=== PATIENT | female | born 1965 | race American Indian/Alaskan Native ===

== ENCOUNTER 2017-06-03 10:06 | Emergency (ER) | payer OTHER ==
[2017-06-03 10:43] VITALS: BP 157/93
--- NOTE | 2017-06-03 13:08 | Emergency Department Report ---
Blank Doc - Documentation Documentation: 51-year-old female with a history of hypertension and diabetes complains of bilateral flank pain 1 week. Feels like a "cramp". Worse with movement and in the morning. Pain radiates to the left upper quadrant at times. Denies associated symptoms include nausea, vomiting, melena, hematochezia, hematuria, or dysuria. That Motrin last night with improvement in pain Orders: UA Please note patient is currently on her menstrual cycle (instructed to wipe prior to providing a sample).
[2017-06-03 14:50] LABS: Bacteria,Urine 1+ /HPF (Negative); Bilirubin,Urine NEG (Negative); Blood,Urine LG (Negative); Color,Urine Yellow (Yellow); Mucus,Urine FEW /HPF; Protein,Urine <15 mg/dL mg/dL (Negative); Urobilinogen,Urine < 2.0 mg/dL (<2.0)
[2017-06-03 15:06] LABS: RBC,Urine > 182.0 /HPF (0.0-6.0)
--- NOTE | 2017-06-03 15:22 | Emergency Department Report ---
ED Back Pain/Injury HPI - General Chief Complaint: Back Pain/Injury Stated Complaint: LOW BACK PAIN Time Seen by Provider: 06/03/17 13:00 Source: patient Limitations: No Limitations - History of Present Illness Initial Comments: This is a 51-year-old female nontoxic, well nourished in appearance, no acute signs of distress presents to the ED with c/o of bilateral lower/flank pain intermittent x1 week. Patient describes pain as cramping. Patient denies any radiation of patient. Patient denies any urinary symptoms.Patient denies any trauma. Patient stated that movement makes the pain worse and laying flat upsides the pain. Patient denies any nausea, vomiting, chest pain, abdominal pain, shortness of breathe, fever, chills, headache, or neck pain. Patient denies any allergies. PMH includes HTN or DM. MD Complaint: back pain -: week(s) (1) Similar Symptoms Previously: Yes Radiation: none Severity: mild Severity scale (0 -10): 8 Quality: other (cramping) Consistency: intermittent Improves With: immobilization, supine Worsens With: movement, walking Associated Symptoms: denies other symptoms. denies: confusion, weakness, chest pain, numbness, difficulty walking, cough, difficulty urinating, diaphoresis, incontinence, fever/chills, constipation, headaches, abdominal pain, loss of appetite, malaise, nausea/vomiting, rash, seizure, shortness of breath, syncope - Related Data Previous Rx's Medication Instructions Recorded Last Taken Type Cyclobenzaprine [Flexeril] 10 mg PO QHS PRN #7 tablet 06/03/17 Unknown Rx Ibuprofen [Motrin] 600 mg PO Q8H PRN #30 tablet 06/03/17 Unknown Rx Sulfamethoxazole/Trimethoprim 1 each PO BID #14 tablet 06/03/17 Unknown Rx [Bactrim DS TAB] Allergies Allergy/AdvReac Type Severity Reaction Status Date / Time No Known Allergies Allergy Unverified 06/03/17 10:38 ED Review of Systems ROS: Stated complaint: LOW BACK PAIN Other details as noted in HPI Constitutional: denies: chills, fever Eyes: denies: eye pain, eye discharge, vision change ENT: denies: ear pain, throat pain Respiratory: denies: cough, shortness of breath, wheezing Cardiovascular: denies: chest pain, palpitations Endocrine: no symptoms reported Gastrointestinal: denies: abdominal pain, nausea, diarrhea Genitourinary: denies: urgency, dysuria, discharge Musculoskeletal: back pain. denies: joint swelling, arthralgia Skin: denies: rash, lesions Neurological: denies: headache, weakness, paresthesias Psychiatric: denies: anxiety, depression Hematological/Lymphatic: denies: easy bleeding, easy bruising ED Past Medical Hx - Past Medical History Hx Hypertension: Yes Hx Diabetes: Yes - Surgical History Past Surgical History?: Yes Hx Cholecystectomy: Yes Additional Surgical History: TUBAL LIGATION - Social History Smoking Status: Never Smoker Substance Use Type: None - Medications Home Medications: Home Medications Medication Instructions Recorded Confirmed Last Taken Type Cyclobenzaprine [Flexeril] 10 mg PO QHS PRN #7 tablet 06/03/17 Unknown Rx Ibuprofen [Motrin] 600 mg PO Q8H PRN #30 tablet 06/03/17 Unknown Rx Sulfamethoxazole/Trimethoprim 1 each PO BID #14 tablet 06/03/17 Unknown Rx [Bactrim DS TAB] ED Physical Exam - General Limitations: No Limitations General appearance: alert, in no apparent distress - Head Head exam: Present: atraumatic, normocephalic - Eye Eye exam: Present: normal appearance Pupils: Present: normal accommodation - ENT ENT exam: Present: normal exam, mucous membranes moist - Neck Neck exam: Present: normal inspection, full ROM. Absent: tenderness, meningismus, lymphadenopathy - Respiratory Respiratory exam: Present: normal lung sounds bilaterally. Absent: respiratory distress, wheezes, rales, rhonchi, stridor, chest wall tenderness, accessory muscle use, decreased breath sounds, prolonged expiratory - Cardiovascular Cardiovascular Exam: Present: regular rate, normal rhythm, normal heart sounds. Absent: bradycardia, tachycardia, irregular rhythm, systolic murmur, diastolic murmur, rubs, gallop - GI/Abdominal GI/Abdominal exam: Present: soft, normal bowel sounds. Absent: distended, tenderness, guarding, rebound, rigid, diminished bowel sounds - Rectal Rectal exam: Present: deferred - Extremities Exam Extremities exam: Present: normal inspection, full ROM, normal capillary refill. Absent: tenderness - Back Exam Back exam: Present: normal inspection, full ROM, paraspinal tenderness (lumbar region). Absent: tenderness, CVA tenderness (R), CVA tenderness (L), muscle spasm, vertebral tenderness, rash noted - Neurological Exam Neurological exam: Present: alert, oriented X3, normal gait - Psychiatric Psychiatric exam: Present: normal affect, normal mood - Skin Skin exam: Present: warm, dry, intact, normal color. Absent: rash ED Course Vital Signs 06/03/17 10:39 Temperature 97.4 F L Pulse Rate 71 Respiratory 17 Rate Blood Pressure 157/93 O2 Sat by Pulse 98 Oximetry - Reevaluation(s) Reevaluation #1: 06/03/17 15:22 Patient is speaking in full sentences with no signs of distress noted. - Consultations Consultation #1: 06/03/17 15:22 Patient has been consulted with Dr. Roblero about patient history, physical exam, and labs and examined and screened patient and agrees to ED plan of care and discharge plan of care. ED Medical Decision Making - Medical Decision Making This is a 51-year-old female that presents with muscleskeltal pain. Patient is stable and was examined by me and Dr. Roblero. Patient stated she is on her menstrual cycle currently. UA obtained with slight UTI. No CVA tenderness. Patient is discharged with Flexeril and Bactrim. Patient was instructed to Follow-up with a primary care doctor in 3-5 days or if symptoms worsen and continue return to emergency room as soon as possible. At time of discharge, the patient does not seem toxic or ill in appearance. No acute signs of distress noted. Patient agrees to discharge treatment plan of care. No further questions noted by the patient. Critical care attestation.: If time is entered above; I have spent that time in minutes in the direct care of this critically ill patient, excluding procedure time. ED Disposition Clinical Impression: Low back strain Qualifiers: Encounter type: initial encounter Qualified Code(s): S39.012A - Strain of muscle, fascia and tendon of lower back, initial encounter UTI (urinary tract infection) Qualifiers: Urinary tract infection type: site unspecified Hematuria presence: without hematuria Qualified Code(s): N39.0 - Urinary tract infection, site not specified Disposition: TO HOME OR SELFCARE Is pt being admited?: No Does the pt Need Aspirin: No Condition: Stable Instructions: Low Back Strain (ED), Urinary Tract Infection in Women (ED), Sulfamethoxazole/Trimethoprim (By mouth), Cyclobenzaprine (By mouth) Additional Instructions: Follow-up with your primary care doctor in 3-5 days or if symptoms worsen such as bladder or bowel stability, chest pain, short of breath, numbness or tingling sensation in extremities, headache, dizziness, visual changes, nausea vomiting, or abdominal pain, return back to emergency room as was possible. Take ibuprofen and Flexeril as prescribed. Do not operate heavy machinery while taking Flexeril due to sedation Prescriptions: Cyclobenzaprine [Flexeril] 10 mg PO QHS PRN #7 tablet PRN Reason: Muscle Spasm Ibuprofen [Motrin] 600 mg PO Q8H PRN #30 tablet PRN Reason: Pain Sulfamethoxazole/Trimethoprim [Bactrim DS TAB] 1 each PO BID #14 tablet Referrals: PRIMARY CAREMD [Primary Care Provider] - 3-5 Days ZANDRA ROMERO MD [Staff Physician] - 3-5 Days [facility] [Outside] - 3-5 Days [facility] [Outside] - 3-5 Days Forms: Work/School Release Form(ED)
== END 2017-06-03 16:10 | disposition home or self-care (01) ==
LOC: ED 10:06
DX: S39.012A Strain of muscle, fascia and tendon of lower back, initial encounter (principal); N39.0 Urinary tract infection, site not specified; I10 Essential (primary) hypertension; E11.9 Type 2 diabetes mellitus without complications; X58.XXXA Exposure to other specified factors, initial encounter; Y93.89 Activity, other specified; Y92.89 Other specified places as the place of occurrence of the external cause; Y99.8 Other external cause status
CPT/HCPCS: 81001

== ENCOUNTER 2017-09-10 22:30 | Emergency (ER) | payer OTHER ==
[2017-09-10] MEDS ORDERED: ASPIRIN PO ONE (23:09)
[2017-09-10 23:37] LABS: Basophils # (Auto) 0.1 K/mm3 (0.0-0.1); Basophils % (Auto) 0.8 % (0.0-1.8); Eosinophils # (Auto) 0.4 K/mm3 (0.0-0.4); Eosinophils % (Auto) 4.5 % (0.0-4.3); Hematocrit 33.8 % (30.3-42.9); Hemoglobin 11.6 gm/dl (10.1-14.3); Lymphocytes # (Auto) 2.3 K/mm3 (1.2-5.4); Lymphocytes % (Auto) 28.2 % (13.4-35.0); Mean Corpuscular HGB Conc 34 % (30-34); Mean Corpuscular Volume 71 fl (79-97); Monocytes # (Auto) 0.7 K/mm3 (0.0-0.8); Monocytes % (Auto) 8.9 % (0.0-7.3); Platelet Count 438 K/mm3 (140-440); Red Blood Count 4.75 M/mm3 (3.65-5.03); Red Cell Distribution Width 18.3 % (13.2-15.2)
[2017-09-10 23:55] LABS: BUN/Creatinine Ratio 16; Blood Urea Nitrogen 11 mg/dL (7-17); Calcium 9.7 mg/dL (8.4-10.2); Hemolysis Index 1
[2017-09-11 00:01] LABS: Mean Corpuscular Hemoglobin 24 pg (28-32)
[2017-09-11 01:52] LABS: Bilirubin,Urine NEG (Negative); Blood,Urine LG (Negative); Color,Urine Yellow (Yellow); Mucus,Urine FEW /HPF; Protein,Urine <15 mg/dL mg/dL (Negative); Urobilinogen,Urine < 2.0 mg/dL (<2.0)
--- NOTE | 2017-09-11 02:21 | XRay Report ---
FINAL REPORT EXAM: XR CHEST ROUTINE 2V HISTORY: cough, cp COMPARISON: None available. FINDINGS:: Frontal and lateral views of the chest obtained. Heart normal in size. Linear atelectasis or scarring at the right lung base. Lungs otherwise clear. No large airspace consolidation or pleural effusion. No pneumothorax. IMPRESSION:: Small focus of linear scarring or atelectasis at the right lung base. Lungs are otherwise clear.
--- NOTE | 2017-09-11 02:30 | Emergency Department Report ---
ED Chest Pain HPI - General Chief Complaint: Chest Pain Stated Complaint: CHEST PAIN Time Seen by Provider: 09/11/17 01:55 Source: patient Mode of arrival: Ambulatory Limitations: No Limitations - History of Present Illness Initial Comments: 52-year-old female the past medical history diabetes, hypertension, cholecystectomy and tubal ligation presents to the hospital with complaints of sternal chest pain and GERD symptoms. Midsternal chest pain is moderate, sharp , intermittent, worse with palpation and movement in certain directions. She thinks that she slept in a awkward position. She denies shortness of breath, nausea, vomiting, diaphoresis, calf tenderness, leg edema, or history of PE/ DVT. Nonproductive cough reported to allergies. Patient did recently return from a trip to [place] where her primary care doctor is located. She does not have a local primary care doctor despite living here 5 years. She also had history of chronic GERD and has been noncompliant with her omeprazole. Today she had epigastric discomfort that then spread to her chest and described as a burning sensation. Similar symptoms in the past due to reflux. The patient recently sprained a muscle and has been taken ibuprofen and was also recently prescribed Naprosyn. Pain improved after omeprazole and Mylanta. Patient last stress test was several years ago the patient cannot recall the year. She denies smoking history or family history of CAD. Since waiting in the ED her pain has improved Severity scale (0 -10): 3 - Related Data Previous Rx's Medication Instructions Recorded Last Taken Type Cyclobenzaprine [Flexeril] 10 mg PO QHS PRN #7 tablet 06/03/17 Unknown Rx Ibuprofen [Motrin] 600 mg PO Q8H PRN #30 tablet 06/03/17 Unknown Rx Sulfamethoxazole/Trimethoprim 1 each PO BID #14 tablet 06/03/17 Unknown Rx [Bactrim DS TAB] Allergies Allergy/AdvReac Type Severity Reaction Status Date / Time No Known Allergies Allergy Verified 09/10/17 23:08 Heart Score - HEART Score History: Slightly suspicious EKG: Normal Age: 45-65 Risk factors: 1-2 risk factors Troponin: < normal limit HEART Score: 2 ED Review of Systems ROS: Stated complaint: CHEST PAIN Other details as noted in HPI Comment: All other systems reviewed and negative ED Past Medical Hx - Past Medical History Previous Medical History?: Yes Hx Hypertension: Yes Hx Diabetes: Yes - Surgical History Past Surgical History?: Yes Hx Cholecystectomy: Yes Additional Surgical History: TUBAL LIGATION - Social History Smoking Status: Never Smoker Substance Use Type: None - Medications Home Medications: Home Medications Medication Instructions Recorded Confirmed Last Taken Type Cyclobenzaprine [Flexeril] 10 mg PO QHS PRN #7 tablet 06/03/17 Unknown Rx Ibuprofen [Motrin] 600 mg PO Q8H PRN #30 tablet 06/03/17 Unknown Rx Sulfamethoxazole/Trimethoprim 1 each PO BID #14 tablet 06/03/17 Unknown Rx [Bactrim DS TAB] ED Physical Exam - General Limitations: No Limitations - Other Other exam information: General: No limitations, patient is alert in no acute distress Head exam: Atraumatic, normocephalic Eyes exam: Normal appearance, pupils equal reactive to light, extraocular movements intact ENT: Moist mucous membrane, normal oropharynx Neck exam: Normal inspection, full range of motion, no meningismus nontender Respiratory exam: Clear to auscultation bilateral, no wheezes, rales, crackles Cardiovascular: Normal rate and rhythm, normal heart sounds, reproducible midsternal chest wall tenderness Abdomen: Soft, nondistended, and nontender, with normal bowel sounds, no rebound, or guarding Extremity: Full range of motion normal inspection no deformity, no calf tenderness or edema Back: Normal Inspection, full range of motion, no tenderness Neurologic: Alert, oriented x3, cranial nerves intact, no motor or sensory deficit Psychiatric: normal affect, normal mood Skin: Warm, dry, intact ED Course Vital Signs 09/10/17 09/11/17 09/11/17 23:05 01:34 01:35 Temperature 97.9 F 97.2 F L Pulse Rate 74 Respiratory 18 18 Rate Blood Pressure 159/82 O2 Sat by Pulse 96 98 Oximetry SKYE score - Skye Score Age > 65: (0) No Aspirin use within the Past 7 Days: (0) No 3 or more CAD Risk Factors: (0) No 2 or more Angina events in past 24 hrs: (0) No Known CAD with more than 50% Stenosis: (0) No Elevated Cardiac Markers: (0) No ST Deviation Greater than 0.5mm: (0) No SKYE Score: 0 ED Medical Decision Making - Lab Data Result diagrams: 09/10/17 23:14 09/10/17 23:14 Lab Results 09/10/17 09/10/17 09/11/17 Range/Units 23:14 23:14 01:34 WBC 8.3 (4.5-11.0) K/mm3 RBC 4.75 (3.65-5.03) M/mm3 Hgb 11.6 (10.1-14.3) gm/dl Hct 33.8 (30.3-42.9) % MCV 71 L (79-97) fl MCH 24 L (28-32) pg MCHC 34 (30-34) % RDW 18.3 H (13.2-15.2) % Plt Count 438 (140-440) K/mm3 Lymph % (Auto) 28.2 (13.4-35.0) % [place] % (Auto) 8.9 H (0.0-7.3) % Eos % (Auto) 4.5 H (0.0-4.3) % Baso % (Auto) 0.8 (0.0-1.8) % Lymph # 2.3 (1.2-5.4) K/mm3 [place] # 0.7 (0.0-0.8) K/mm3 Eos # 0.4 (0.0-0.4) K/mm3 Baso # 0.1 (0.0-0.1) K/mm3 Seg Neutrophils % 57.6 (40.0-70.0) % Seg Neutrophils # 4.8 (1.8-7.7) K/mm3 Sodium 140 (137-145) mmol/L Potassium 3.5 L (3.6-5.0) mmol/L Chloride 98.1 (98-107) mmol/L Carbon Dioxide 26 (22-30) mmol/L Anion Gap 19 mmol/L BUN 11 (7-17) mg/dL Creatinine 0.7 (0.7-1.2) mg/dL Estimated GFR > 60 ml/min BUN/Creatinine Ratio 16 % Glucose 111 H (65-100) mg/dL Calcium 9.7 (8.4-10.2) mg/dL Troponin T < 0.010 (0.00-0.029) ng/mL Urine Color Yellow (Yellow) Urine Turbidity Clear (Clear) Urine pH 5.0 (5.0-7.0) Ur Specific [place] 1.018 (1.003-1.030) Urine Protein <15 mg/dl (Negative) mg/dL Urine Glucose (UA) Neg (Negative) mg/dL Urine Ketones Neg (Negative) mg/dL Urine Blood Lg (Negative) Urine Nitrite Neg (Negative) Urine Bilirubin Neg (Negative) Urine Urobilinogen < 2.0 (<2.0) mg/dL Ur Leukocyte Esterase Neg (Negative) Urine WBC (Auto) 1.0 (0.0-6.0) /HPF Urine RBC (Auto) 35.0 (0.0-6.0) /HPF U Epithel Cells (Auto) < 1.0 (0-13.0) /HPF Urine Mucus Few /HPF - EKG Data -: EKG Interpreted by Nh EKG shows normal: sinus rhythm, axis (qrs 14), QRS complexes (qrsd 98), ST-T waves (flat lat t waves) Rate: normal (68) - Radiology Data Radiology results: report reviewed Read by radiology Chest x-ray: Small focus of linear scarring or atelectasis of the right lung base. Lungs otherwise clear - Medical Decision Making Reproducible sternal chest pain. Suspect costochondritis. No signs of ST elevation [place]. Troponin negative 1. Patient declined a repeat troponin and d-dimer. Patient does not have signs and symptoms of PE or DVT but does have the recent travel history there d-dimer was ordered initially. Patient informed to return if she develops pleuritic chest pain (other than the sternum) and shortness of breath. Chest x-ray without acute findings GERD Exacerbated by NSAID use and omeprazole noncompliant Counselor regarding discontinuing NSAIDs and patient wants to take Tylenol for pain. Declined tramadol, Percocet, and [place] Patient travels back and forth to see her primary care doctor in [place] although she has been living in [place] 5 years. She was given local outpatient follow-up - Differential Diagnosis [place], unstable in his neck, PE, costochondritis, GERD Critical Care Time: No Critical care attestation.: If time is entered above; I have spent that time in minutes in the direct care of this critically ill patient, excluding procedure time. ED Disposition Clinical Impression: Costochondritis, acute, GERD (gastroesophageal reflux disease) Disposition: TO HOME OR SELFCARE Is pt being admited?: No Does the pt Need Aspirin: No Condition: Stable Instructions: Costochondritis (ED), Gastroesophageal Reflux Disease (ED) Additional Instructions: Continue omeprazole and Mylanta. Avoid use of ibuprofen, Naprosyn, and Aleve. Take Tylenol as needed for pain. Return if symptoms worsen as indicated by your discharge instructions. Follow-up with the primary care doctor provided or with the doctor of your choice. Referrals: PRIMARY CAREMD [Primary Care Provider] - 3-5 Days ZANDRA HONG MD [Staff Physician] - 3-5 Days Time of Disposition: 03:04
[2017-09-11 03:16] VITALS: BP 153/84
== END 2017-09-11 03:17 | disposition home or self-care (01) ==
LOC: ED 22:30
DX: M94.0 Chondrocostal junction syndrome [Tietze] (principal); K21.9 Gastro-esophageal reflux disease without esophagitis; I10 Essential (primary) hypertension; E11.9 Type 2 diabetes mellitus without complications; Z90.49 Acquired absence of other specified parts of digestive tract; Z98.51 Tubal ligation status
CPT/HCPCS: 36415; 71046; 80048; 81001; 83735; 84484; 85025; 93005; 93010

== ENCOUNTER 2019-03-17 17:05 | Emergency (ER) | payer OTHER ==
--- NOTE | 2019-03-17 19:44 | Event Note ---
ED Screening Note Date of service: 03/17/19 Time: 19:43 ED Screening Note: 53 y o f presents with cc of pressure type pain behind right eye x 2 day PMH: This initial assessment/diagnostic orders/clinical plan/treatment(s) is/are subject to change based on patients health status, clinical progression and re- assessment by fellow clinical providers in the ED. Further treatment and workup at subsequent clinical providers discretion. Patient/guardian urged not to elope from the ED as their condition may be serious if not clinically assessed and managed. Initial orders include:
--- NOTE | 2019-03-17 22:07 | Emergency Department Report ---
Chief Complaint: Headache Stated Complaint: DIZZY/EYES BOTHING HER Time Seen by Provider: 03/17/19 22:01 - HPI History of Present Illness: 53 y o f presents with cc of pressure type pain behind right eye x 2 days. Patient states that she has clear fluid returning from her nose. She tries to Hack it out. She is pressure behind her eyes. Reports of some mild dizziness. Patient reports she's been taking Benadryl and Flonase. Denies any weakness or change of vision or nausea no vomiting no chest pain or shortness of breathing. States she was able to drive here. Patient reports that she would've gone to her primary care doctor but the office is closed. - Exam Vital Signs: Vital Signs 03/17/19 18:05 Temperature 98.6 F Pulse Rate 70 Respiratory 18 Rate Blood Pressure 149/87 O2 Sat by Pulse 98 Oximetry MSE screening note: Focused history and physical exam performed. Due to findings the following was ordered: 53 y o f presents with cc of pressure type pain behind right eye x 2 days. Patient states that she has clear fluid returning from her nose. She tries to Hack it out. She is pressure behind her eyes. Reports of some mild dizziness. Patient reports she's been taking Benadryl and Flonase. Denies any weakness or change of vision or nausea no vomiting no chest pain or shortness of breathing. States she was able to drive here. Patient reports that she would've gone to her primary care doctor but the office is closed. Recommend changes for Flonase to Nasacort, recommend Claritin-D. Discussed with patient if her blood pressure starts to elevate with taken the Claritin-D to increase her losartan from 50 mg to 100 mg. Also discussed the patient and I will refer her to a new primary care provider since her primary care provider with motor in January. ED Disposition for [facility] Is pt being admited?: No Does the pt Need Aspirin: No Condition: Stable Additional Instructions: Recommend changed from Flonase to Nasacort. Recommend Claritin-D twice a day for at least 1 week. Monitor her blood pressure for elevation. If it becomes too high to increase her losartan 50 mg to 100 mg. Recommend you to follow up with a primary care provider I will list one below for your convenience. Ask for Mrs. Laxmi Arevalo NP. Referrals: PRIMARY CARE, [Primary Care Provider] - 3-5 Days FREDO MERCHANT JR, MD [Staff Physician] - 3-5 Days
[2019-03-17 22:24] VITALS: BP 122/86
== END 2019-03-17 22:20 | disposition home or self-care (01) ==
LOC: ED 17:05
DX: H57.11 Ocular pain, right eye (principal); R42 Dizziness and giddiness
CPT/HCPCS: 99282

== ENCOUNTER 2020-05-28 06:30 | Emergency (ER) | payer OTHER ==
[2020-05-28 08:02] VITALS: BP 182/90
--- NOTE | 2020-05-28 08:12 | Emergency Department Report ---
Chief Complaint: Pain General Stated Complaint: BODY ACHES;EYE ITCHING Time Seen by Provider: 05/28/20 08:05 - HPI History of Present Illness: Is a very pleasant 54-year-old female who presents to the emergency department chief complaint of generalized pruritus, generalized body aches, nasal congestion, itchy eyes and watery eyes as well as itchy ears over the past 2 to 3 days. She states I think it is the pollen is causing the problem. She reports she has been sitting outside for extended period of time over the last few days and this is consistent with her seasonal allergies that she has had previously. She denies any associated fever, chills, night sweats, headache, dizziness, blurry vision, nausea,, diarrhea, chest pain, shortness of breath or any other associated symptoms. - ROS Review of Systems: See HPI - Exam Vital Signs: Vital Signs 05/28/20 07:59 Temperature 97.9 F Pulse Rate 68 Respiratory 20 Rate Blood Pressure 182/90 O2 Sat by Pulse 97 Oximetry Physical Exam: GENERAL APPEARANCE: Well-developed, well-nourished, no acute distress HEENT: Normocephalic and atraumatic. No scleral icterus. Pupils are equal, ro und, and reactive to light and accommodation. No conjunctival injection is noted. Oropharynx is clear. Mouth revealed good dentition, no lesions. Tympanic membranes are clear. NECK: Supple. Trachea is midline. No evidence of thyroid enlargement. No lymphadenopathy or tenderness. CHEST: Symmetric. Nontender to palpation. LUNGS: Breath sounds are equal and clear bilaterally. No wheezes, rhonchi, or rales. HEART: Regular rate and rhythm with normal S1 and S2. No murmurs, gallops, or rubs. BREASTS: Symmetrical. No skin or nipple retractions. No nipple discharges or masses. ABDOMEN: Soft, flat, and benign. No mass, tenderness, guarding, or rebound. No organomegaly or hernia. Bowel sounds are present. No CVA tenderness or flank mass. GENITOURINARY: Deferred RECTAL: Deferred EXTREMITIES: No cyanosis, clubbing, or edema. No lower extreme edema, negative Homans sign bilaterally NEUROLOGIC: No focal sensory or motor deficits are noted. Gait is normal. Cranial nerves II through XII are intact. Deep tendon reflexes are intact. PSYCHIATRIC: The patient is awake, alert, and oriented x3. Recent and remote memory is intact. Appropriate mood and affect. SKIN: Warm, dry, and well perfused. Good turgor. No lesions, nodules or rashes are noted. No onychomycosis. LYMPHATICS: No cervical, axillary, or groin adenopathy is noted. MSE screening note: Focused history and physical exam performed. Due to findings the following was ordered: ED Disposition for MSE Clinical Impression: Allergic rhinitis Qualifiers: Allergic rhinitis trigger: pollen Allergic rhinitis seasonality: seasonal Qualified Code(s): J30.1 - Allergic rhinitis due to pollen Disposition: MED SCREENING EXAM-LEFT Is pt being admited?: No Condition: Stable Instructions: Allergic Rhinitis, Adult Additional Instructions: Claritin, Zyrtec or Radha during the day, Benadryl as needed for sleep at night, Flonase and nasal saline spray. Take a shower after being outside in the pollen. Humidifier in your room while you sleep can also help. Referrals: [facility] [Provider Group] - 3-5 Days DERICK GARDNER MD [Staff Physician] - 3-5 Days Forms: Work/School Release Form(ED) Time of Disposition: 08:11
== END 2020-05-28 08:45 | disposition left against medical advice (07) ==
LOC: ED 06:30
DX: J30.9 Allergic rhinitis, unspecified (principal); Z79.899 Other long term (current) drug therapy; Z53.21 Procedure and treatment not carried out due to patient leaving prior to being seen by health care provider